=== PATIENT | male | born 1975 | race Caucasian/White ===

== ENCOUNTER 2023-10-22 23:25 | Inpatient (IN) | payer OTHER ==
[~2023-10-22] VITALS: Ht 177.8 cm; Wt 59.8 kg
[~2023-10-22 23:25] MED LIST: PANT-47 PO
[2023-10-23] LABS: BASOPHILS # (AUTO) 0.1 X10'3 (0-0.2); BASOPHILS % (AUTO) 0.4 % (0-1); EOSINOPHILS % (AUTO) 0.1 % (0-6); HEMATOCRIT 38.6 % (42.0-52.0); HEMOGLOBIN 12.7 g/dl (14.0-17.9); LYMPHOCYTES # (AUTO) 0.7 X10'3 (1.1-4.8); LYMPHOCYTES % (AUTO) 5.4 % (21-51); MEAN CORPUSCULAR HEMOGLOBIN 32.6 PG (27.0-31.0); MEAN CORPUSCULAR HGB CONC 32.8 g/dL (33.0-36.5); MEAN CORPUSCULAR VOLUME 99.3 FL (78-98); MEAN PLATELET VOLUME 8.7 FL (7.4-10.4); MONOCYTES # (AUTO) 1.1 X10'3 (0-0.9); MONOCYTES % (AUTO) 9.1 % (2-12); NEUTROPHILS # (AUTO) 10.4 X10'3 (1.8-7.7); PLATELET COUNT 203 X10'3 (140-440); RED BLOOD COUNT 3.89 X10'6 (4.70-6.10); RED CELL DISTRIBUTION WIDTH 12.5 % (11.5-14.5); WHITE BLOOD COUNT 12.2 X10'3 (4.5-11.0)
[2023-10-23] MEDS ORDERED: normal saline 1000ML IV soln IVB ONE (00:05)
[2023-10-23] MEDS ORDERED: ondansetron/PF 4mg/2ml inj IV ONE (00:05)
[2023-10-23 00:27] LABS: ALANINE AMINOTRANSFERASE 26 U/L (12-78); ALBUMIN 4.1 G/DL (3.4-5.0); ALBUMIN/GLOBULIN RATIO 1.4 (1.1-1.5); ALKALINE PHOSPHATASE 100 IU/L (46-116); ANION GAP 27 (8-16); ASPARTATE AMINO TRANSFERASE 25 U/L (10-37); BILIRUBIN,TOTAL 0.9 MG/DL (0.1-1.0); BLOOD UREA NITROGEN 33 MG/DL (7-18); BUN/CREATININE RATIO 17.6 (10.0-20.0); CALCIUM 9.5 MG/DL (8.5-10.1); CHLORIDE 86 MMOL/L (99-107); CREATININE 1.88 MG/DL (0.60-1.10); LIPASE 18 U/L (16-77); POTASSIUM 5.3 MMOL/L (3.5-5.1); SODIUM 124 MMOL/L (135-145); eCRCL 43 ML/MIN; eGFR 39 ML/MIN
[2023-10-23 00:30] LABS: GLUCOSE 674 MG/DL (70-104); TOTAL CARBON DIOXIDE 11.4 MMOL/L (24-32)
--- NOTE | 2023-10-23 00:31 | NUR ---
kemar BUCIO updated on critical lab values, ABG ordered.
[2023-10-23] MEDS ORDERED: insulin regular, human 10 units/0.1 ml syringe IV ONE (00:40)
--- NOTE | 2023-10-23 00:48 | NUR ---
RT at bedside
[2023-10-23 01:01] LABS: ETHANOL < 10 MG/DL (<10)
[2023-10-23 01:05] LABS: BILIRUBIN,URINE NEGATIVE (Neg); CLARITY,URINE CLEAR (Clear); COLOR,URINE STRAW (Yellow); GLUCOSE, URINE >=1000 mg/dl (Neg); LEUKOCYTE ESTERASE ,URINE NEGATIVE (Neg); NITRITES, URINE NEGATIVE (Neg); OCCULT BLOOD,URINE NEGATIVE (Neg); PH,URINE 5.5 (4.8-8.0); PROTEIN,URINE NEGATIVE (Neg); UROBILINOGEN,URINE 0.2 E.U/dL (0.2-1.0)
[2023-10-23 01:09] LABS: UA COLLECTION TYPE CLN CATCH MIDSTREAM
[2023-10-23 01:10] LABS: KETONES,URINE >80 mg/dl (Neg)
[2023-10-23 01:11] LABS: MUCUS STRANDS FEW /LPF (Neg); SQUAMOUS EPITHELIAL CELL,UR NONE SEEN /LPF (FEW)
[2023-10-23 01:12] LABS: BACTERIA,URINE FEW /HPF (Neg); RBC,URINE NONE SEEN /HPF (0-2); WBC,URINE NONE SEEN /HPF (0-4)
[2023-10-23 01:30] LABS: ABG BASE EXCESS -18.8 mmol/L (-2.0-2.0); ABG HCO3 8.4 mmol/L (22.0-26.0); ABG PCO2 (T) 24.5 mmHg (35.0-48.0); ABG PH (T) 7.153 (7.340-7.440); ABG PO2 (T) 66.7 mmHg (75.0-100.0); ALLEN'S TEST Modified; FMetHb 0.4 % (0.0-1.5); FO2Hb 89.6 % (94-97); MODE ROOM AIR; PATIENT TEMPERATURE 36.8; TOTAL HEMOGLOBIN 12.2 G/dl (14.0-17.9)
[2023-10-23] MEDS ORDERED: sodium phosphate inj. 15 MMOL in dextrose 5%-water 250 ML IV PRN (01:35)
[2023-10-23] MEDS ORDERED: Insulin Reg/NS 100units/100mL 100 ML IV SCH (01:35)
[2023-10-23] MEDS ORDERED: potassium Cl 20 mEq SR tablet PO PRN ×2 (01:35)
[2023-10-23] MEDS ORDERED: sodium bicarbonate (8.4%) inj. 100 MEQ in dextrose 5% water 500ml 500 ML IV PRN (01:35)
[2023-10-23] MEDS ORDERED: normal saline 1000ml 1,000 ML IV SCH (01:35)
[2023-10-23] MEDS ORDERED: Neutra Phos packet PO PRN (01:35)
[2023-10-23] MEDS ORDERED: potassium CL 20mEq in D5-1/2NS 1,000 ML IV PRN (01:35)
[2023-10-23] MEDS ORDERED: potassium Cl 40MEQ/1/2NS 520ml 520 ML IV PRN ×2 (01:35)
[2023-10-23] MEDS ORDERED: sodium phosphate inj. 30 MMOL in dextrose 5%-water 250 ML IV PRN (01:35)
[2023-10-23] MEDS ORDERED: sodium bicarbonate (8.4%) inj. 50 MEQ in dextrose 5% water 500ml 250 ML IV PRN (01:35)
[2023-10-23] MEDS: normal saline 1000ml 1,000 ML IV SCH ×6 (01:52→21:35)
[2023-10-23 02:35] LABS: ALBUMIN 3.4 G/DL (3.4-5.0); ANION GAP 23 (8-16); BLOOD UREA NITROGEN 29 MG/DL (7-18); BUN/CREATININE RATIO 17.3 (10.0-20.0); CALCIUM 8.1 MG/DL (8.5-10.1); CHLORIDE 98 MMOL/L (99-107); CREATININE 1.68 MG/DL (0.60-1.10); PHOSPHORUS 3.7 MG/DL (2.3-4.5); POTASSIUM 4.3 MMOL/L (3.5-5.1); SODIUM 132 MMOL/L (135-145); eCRCL 48 ML/MIN; eGFR 44 ML/MIN
[2023-10-23 02:45] LABS: GLUCOSE 442 MG/DL (70-104)
[2023-10-23 02:48] LABS: TOTAL CARBON DIOXIDE 11.2 MMOL/L (24-32)
[2023-10-23] MEDS: insulin Lispro (HumaLOG) vial - multi-dose SQ SCH ×4 (04:32→19:34)
[2023-10-23] MEDS ORDERED: magnesium hydroxide 30ml (MOM) UD suspension PO PRN (04:35)
[2023-10-23] MEDS ORDERED: acetaminophen 325mg tablet PO PRN ×2 (04:35)
[2023-10-23] MEDS ORDERED: ondansetron/PF 4mg/2ml inj IV PRN (04:35)
[2023-10-23] MEDS ORDERED: INSU100V13 (05:11)
[2023-10-23] MEDS ORDERED: BLOO-1948 (05:11)
[2023-10-23 05:39] LABS: BASOPHILS % (AUTO) 0.2 % (0-1); EOSINOPHILS % (AUTO) 0.1 % (0-6); HEMATOCRIT 31.9 % (42.0-52.0); HEMOGLOBIN 10.7 g/dl (14.0-17.9); LYMPHOCYTES % (AUTO) 17.5 % (21-51); MEAN CORPUSCULAR HEMOGLOBIN 32.2 PG (27.0-31.0); MEAN CORPUSCULAR HGB CONC 33.5 g/dL (33.0-36.5); MEAN CORPUSCULAR VOLUME 96.2 FL (78-98); MEAN PLATELET VOLUME 7.6 FL (7.4-10.4); MONOCYTES # (AUTO) 1.1 X10'3 (0-0.9); MONOCYTES % (AUTO) 9.3 % (2-12); NEUTROPHILS # (AUTO) 8.4 X10'3 (1.8-7.7); NEUTROPHILS % (AUTO) 72.9 % (42-75); PLATELET COUNT 164 X10'3 (140-440); RED BLOOD COUNT 3.32 X10'6 (4.70-6.10); RED CELL DISTRIBUTION WIDTH 12.5 % (11.5-14.5); WHITE BLOOD COUNT 11.5 X10'3 (4.5-11.0)
[2023-10-23 05:50] LABS: ALANINE AMINOTRANSFERASE 24 U/L (12-78); ALBUMIN 3.1 G/DL (3.4-5.0); ALBUMIN/GLOBULIN RATIO 1.2 (1.1-1.5); ALKALINE PHOSPHATASE 63 IU/L (46-116); ANION GAP 10 (8-16); ASPARTATE AMINO TRANSFERASE 22 U/L (10-37); BILIRUBIN,TOTAL 0.5 MG/DL (0.1-1.0); BLOOD UREA NITROGEN 24 MG/DL (7-18); BUN/CREATININE RATIO 17.3 (10.0-20.0); CALCIUM 8.3 MG/DL (8.5-10.1); CHLORIDE 103 MMOL/L (99-107); CREATININE 1.39 MG/DL (0.60-1.10); GLUCOSE 266 MG/DL (70-104); PHOSPHORUS 2.2 MG/DL (2.3-4.5); POTASSIUM 4.3 MMOL/L (3.5-5.1); SODIUM 134 MMOL/L (135-145); TOTAL CARBON DIOXIDE 20.8 MMOL/L (24-32); TOTAL PROTEIN 5.7 G/DL (6.4-8.2); eCRCL 58 ML/MIN; eGFR 55 ML/MIN
[2023-10-23] MEDS: Insulin Reg/NS 100units/100mL 100 ML IV SCH (06:00)
--- NOTE | 2023-10-23 06:53 | NUR ---
MD Flanagan paged regarding morning troponin of 450. Awaiting call back. Patient resting quietly in bed. 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 VSS (BPs soft, but consistent throughout night).
[2023-10-23 07:02] LABS: ANION GAP 9 (8-16); BLOOD UREA NITROGEN 21 MG/DL (7-18); BUN/CREATININE RATIO 15.7 (10.0-20.0); CALCIUM 7.9 MG/DL (8.5-10.1); CHLORIDE 103 MMOL/L (99-107); CREATININE 1.34 MG/DL (0.60-1.10); GLUCOSE 238 MG/DL (70-104); POTASSIUM 4.4 MMOL/L (3.5-5.1); SODIUM 133 MMOL/L (135-145); TOTAL CARBON DIOXIDE 21.2 MMOL/L (24-32); eCRCL 60 ML/MIN; eGFR 57 ML/MIN
[2023-10-23 07:16] LABS: BASOPHILS % (AUTO) 0.4 % (0-1); EOSINOPHILS % (AUTO) 0.2 % (0-6); HEMATOCRIT 31.4 % (42.0-52.0); HEMOGLOBIN 10.8 g/dl (14.0-17.9); LYMPHOCYTES # (AUTO) 2.2 X10'3 (1.1-4.8); LYMPHOCYTES % (AUTO) 20.9 % (21-51); MEAN CORPUSCULAR HGB CONC 34.3 g/dL (33.0-36.5); MEAN CORPUSCULAR VOLUME 96.3 FL (78-98); MEAN PLATELET VOLUME 7.5 FL (7.4-10.4); MONOCYTES # (AUTO) 0.8 X10'3 (0-0.9); MONOCYTES % (AUTO) 8.2 % (2-12); NEUTROPHILS # (AUTO) 7.3 X10'3 (1.8-7.7); NEUTROPHILS % (AUTO) 70.3 % (42-75); PLATELET COUNT 165 X10'3 (140-440); RED BLOOD COUNT 3.27 X10'6 (4.70-6.10); RED CELL DISTRIBUTION WIDTH 11.9 % (11.5-14.5); WHITE BLOOD COUNT 10.3 X10'3 (4.5-11.0)
--- NOTE | 2023-10-23 07:27 | NUR ---
MD Flanagan called back and was notified of 450 Trop as well as new trop of 628 from 0725. Md requested most recent EKG (from the last hour) and stated new order for ASA and possible cards consult will be placed. Md Torres to take over for day shift. Will continue to monitor patient.
[2023-10-23] MEDS: K and/or MAG REPLACEMENT MC SCH ×2 (08:00→20:00)
[2023-10-23] MEDS: nicotine 14mg patch - 24hr TD SCH (08:18)
[2023-10-23] MEDS: famotidine 20mg tablet PO SCH ×2 (08:18→20:38)
[2023-10-23] MEDS: heparin, porcine 5000 units/ml vial SQ SCH ×2 (08:20→20:00)
--- NOTE | 2023-10-23 08:27 | NUR ---
Md Torres stating enteric coated asa is appropriate at this time - to be given with 0800 meds.
[2023-10-23] MEDS: aspirin 325mg tablet, delayed-release (Ecotrin) PO SCH (08:28)
[2023-10-23] MEDS ORDERED: heparin 25,000 UNIT/250ml bag 250 ML IV PRN (08:55)
[2023-10-23] MEDS ORDERED: normal saline 1000ml 1,000 ML IV ONE ×2 (08:55)
[2023-10-23] MEDS ORDERED: heparin 10,000 units/1 ML INJ IV ONE (08:55)
[2023-10-23] MEDS ORDERED: PERFLUTREN PROTEIN-A MICROSPHR (Optison) 0.22 MG/ML 3ML VIAL IV ONE (08:55)
[2023-10-23 09:33] LABS: APTT 27 SECONDS (22-32)
[2023-10-23 09:36] LABS: BASOPHILS % (AUTO) 0.4 % (0-1); EOSINOPHILS % (AUTO) 0.4 % (0-6); HEMOGLOBIN 10.6 g/dl (14.0-17.9); LYMPHOCYTES # (AUTO) 2.2 X10'3 (1.1-4.8); MEAN CORPUSCULAR HEMOGLOBIN 32.7 PG (27.0-31.0); MEAN CORPUSCULAR HGB CONC 34.1 g/dL (33.0-36.5); MEAN PLATELET VOLUME 8.1 FL (7.4-10.4); MONOCYTES # (AUTO) 0.9 X10'3 (0-0.9); MONOCYTES % (AUTO) 9.2 % (2-12); NEUTROPHILS # (AUTO) 6.4 X10'3 (1.8-7.7); PLATELET COUNT 170 X10'3 (140-440); RED BLOOD COUNT 3.23 X10'6 (4.70-6.10); RED CELL DISTRIBUTION WIDTH 12.3 % (11.5-14.5); WHITE BLOOD COUNT 9.5 X10'3 (4.5-11.0)
--- NOTE | 2023-10-23 09:44 | NUR ---
Contacted dr melgar to see if he wanted the Heparin bolus given d/t SQ dose being given, he said to proceed and give the 4,000 bolus and start the drip as per protocol.
[2023-10-23 09:51] LABS: PROTHROMBIN TIME 11.2 SECONDS (9.0-12.0)
--- NOTE | 2023-10-23 13:53 | NUR ---
attempted to call report on patient, nurse on break.
--- NOTE | 2023-10-23 14:45 | NUR ---
Patient in room ED 7. I have received report from Jessie RN and had the opportunity to ask questions and assume patient care.
--- NOTE | 2023-10-23 14:50 | NUR ---
Pt arrived on the unit from ER. Pt ambulated to bathroom. Pt in NAD. Pt settled into room.
[2023-10-23 15:00] VITALS: BP 127/72; PULSE 93; RESP 16; TEMP 98.3; O2SAT 99
[2023-10-23 16:00] VITALS: RESP 14; O2SAT 99
--- NOTE | 2023-10-23 16:17 | NUR ---
PAGER ID: [phone] MESSAGE: Pt Gordon in 1773B is on PCU and is asking if we are doing a stress test? He was told he could not have caffeine in the ER and is asking for some coffee now. Please advise. IVONNE Van [id number]
[2023-10-23 17:28] LABS: BASOPHILS % (AUTO) 0.4 % (0-1); EOSINOPHILS # (AUTO) 0.1 X10'3 (0-0.9); EOSINOPHILS % (AUTO) 1.4 % (0-6); HEMATOCRIT 32.7 % (42.0-52.0); HEMOGLOBIN 10.9 g/dl (14.0-17.9); LYMPHOCYTES # (AUTO) 2.9 X10'3 (1.1-4.8); LYMPHOCYTES % (AUTO) 28.4 % (21-51); MEAN CORPUSCULAR HEMOGLOBIN 32.6 PG (27.0-31.0); MEAN CORPUSCULAR HGB CONC 33.4 g/dL (33.0-36.5); MEAN CORPUSCULAR VOLUME 97.6 FL (78-98); MEAN PLATELET VOLUME 8.4 FL (7.4-10.4); MONOCYTES % (AUTO) 9.9 % (2-12); NEUTROPHILS # (AUTO) 6.2 X10'3 (1.8-7.7); NEUTROPHILS % (AUTO) 59.9 % (42-75); PLATELET COUNT 160 X10'3 (140-440); RED BLOOD COUNT 3.35 X10'6 (4.70-6.10); RED CELL DISTRIBUTION WIDTH 12.3 % (11.5-14.5); WHITE BLOOD COUNT 10.4 X10'3 (4.5-11.0)
[2023-10-23 17:31] LABS: ALBUMIN 2.8 G/DL (3.4-5.0); ANION GAP 7 (8-16); BLOOD UREA NITROGEN 15 MG/DL (7-18); BUN/CREATININE RATIO 15.3 (10.0-20.0); CALCIUM 7.8 MG/DL (8.5-10.1); CHLORIDE 103 MMOL/L (99-107); CREATININE 0.98 MG/DL (0.60-1.10); GLUCOSE 217 MG/DL (70-104); PHOSPHORUS 2.9 MG/DL (2.3-4.5); POTASSIUM 4.1 MMOL/L (3.5-5.1); SODIUM 131 MMOL/L (135-145); TOTAL CARBON DIOXIDE 20.8 MMOL/L (24-32); eCRCL 82 ML/MIN; eGFR 82 ML/MIN
[2023-10-23 18:00] VITALS: BP 128/74; PULSE 95; RESP 13; TEMP 97.8; O2SAT 97
--- NOTE | 2023-10-23 18:00 | NUR ---
Patient in room PCU 3013. I have received report from Carlota CORONADO and had the opportunity to ask questions and assume patient care.
--- NOTE | 2023-10-23 18:01 | NUR ---
PAGER ID: [phone] MESSAGE: Pt Bullis in 3013B aPTT is greater than 139. I'm holding the heparin infusion for 120 minutes per protocol. Pt educated to not get out of bed at this time. Pt in MYLA. IVONNE Van [id number]
--- NOTE | 2023-10-23 18:20 | NUR ---
Problems reprioritized. Patient report given, questions answered & plan of care reviewed with IVONNE Skelton.
[2023-10-23 19:48] LABS: BASOPHILS # (AUTO) 0.1 X10'3 (0-0.2); BASOPHILS % (AUTO) 0.7 % (0-1); EOSINOPHILS # (AUTO) 0.2 X10'3 (0-0.9); EOSINOPHILS % (AUTO) 2.1 % (0-6); HEMATOCRIT 33.6 % (42.0-52.0); HEMOGLOBIN 11.3 g/dl (14.0-17.9); LYMPHOCYTES # (AUTO) 2.6 X10'3 (1.1-4.8); LYMPHOCYTES % (AUTO) 29.3 % (21-51); MEAN CORPUSCULAR HEMOGLOBIN 32.6 PG (27.0-31.0); MEAN CORPUSCULAR HGB CONC 33.5 g/dL (33.0-36.5); MEAN CORPUSCULAR VOLUME 97.2 FL (78-98); MEAN PLATELET VOLUME 8.3 FL (7.4-10.4); MONOCYTES # (AUTO) 0.6 X10'3 (0-0.9); NEUTROPHILS # (AUTO) 5.4 X10'3 (1.8-7.7); NEUTROPHILS % (AUTO) 60.9 % (42-75); PLATELET COUNT 160 X10'3 (140-440); RED BLOOD COUNT 3.46 X10'6 (4.70-6.10); RED CELL DISTRIBUTION WIDTH 12.6 % (11.5-14.5); WHITE BLOOD COUNT 8.9 X10'3 (4.5-11.0)
[2023-10-23 20:00] VITALS: RESP 14; O2SAT 99
[2023-10-23 20:00] LABS: ALBUMIN 2.7 G/DL (3.4-5.0); ANION GAP 10 (8-16); BLOOD UREA NITROGEN 14 MG/DL (7-18); BUN/CREATININE RATIO 13.1 (10.0-20.0); CALCIUM 7.9 MG/DL (8.5-10.1); CHLORIDE 101 MMOL/L (99-107); CREATININE 1.07 MG/DL (0.60-1.10); GLUCOSE 290 MG/DL (70-104); PHOSPHORUS 2.6 MG/DL (2.3-4.5); POTASSIUM 4.3 MMOL/L (3.5-5.1); SODIUM 131 MMOL/L (135-145); TOTAL CARBON DIOXIDE 20.1 MMOL/L (24-32); eCRCL 75 ML/MIN; eGFR 74 ML/MIN
[2023-10-23] MEDS ORDERED: dextrose 50%-water 50ml dispensing syringe IV PRN ×2 (21:40)
[2023-10-23] MEDS ORDERED: MESSAGE TO PHARMACY PO ONE (21:40)
[2023-10-23] MEDS ORDERED: glucagon, human recombinant 1mg kit SUBCUT PRN (21:40)
[2023-10-23] MEDS ORDERED: DEXTROSE 15 GM of carb/4 tabs (each vial/BOTTLE has 4 tablets) PO PRN ×2 (21:40)
[2023-10-23 22:00] VITALS: BP 116/71; PULSE 94; RESP 14; TEMP 98.5; O2SAT 98
[2023-10-23] MEDS: insulin glargine (Lantus) pen - multi-dose SQ SCH (22:30)
[2023-10-23] MEDS: heparin 10,000 units/1 ML INJ IV PRN (22:52)
[2023-10-24] VITALS (8 sets, daily range): BP systolic 135–159; BP diastolic 84–93; PULSE 80–95; RESP 12–18; TEMP 97.3–98.7; O2SAT 95–99
[2023-10-24] MEDS: normal saline 1000ml 1,000 ML IV SCH ×4 (01:35→13:35)
[2023-10-24 05:44] LABS: BASOPHILS % (AUTO) 0.5 % (0-1); EOSINOPHILS # (AUTO) 0.2 X10'3 (0-0.9); HEMATOCRIT 34.1 % (42.0-52.0); HEMOGLOBIN 11.5 g/dl (14.0-17.9); LYMPHOCYTES % (AUTO) 31.8 % (21-51); MEAN CORPUSCULAR HEMOGLOBIN 32.6 PG (27.0-31.0); MEAN CORPUSCULAR HGB CONC 33.7 g/dL (33.0-36.5); MEAN CORPUSCULAR VOLUME 96.8 FL (78-98); MEAN PLATELET VOLUME 7.9 FL (7.4-10.4); MONOCYTES # (AUTO) 0.4 X10'3 (0-0.9); MONOCYTES % (AUTO) 6.5 % (2-12); NEUTROPHILS # (AUTO) 3.6 X10'3 (1.8-7.7); NEUTROPHILS % (AUTO) 58.2 % (42-75); PLATELET COUNT 158 X10'3 (140-440); RED BLOOD COUNT 3.53 X10'6 (4.70-6.10); RED CELL DISTRIBUTION WIDTH 12.5 % (11.5-14.5); WHITE BLOOD COUNT 6.2 X10'3 (4.5-11.0)
[2023-10-24 06:01] LABS: ALBUMIN 2.8 G/DL (3.4-5.0); ANION GAP 10 (8-16); BLOOD UREA NITROGEN 10 MG/DL (7-18); BUN/CREATININE RATIO 11.4 (10.0-20.0); CALCIUM 8.2 MG/DL (8.5-10.1); CHLORIDE 102 MMOL/L (99-107); CREATININE 0.88 MG/DL (0.60-1.10); GLUCOSE 246 MG/DL (70-104); PHOSPHORUS 2.4 MG/DL (2.3-4.5); SODIUM 134 MMOL/L (135-145); TOTAL CARBON DIOXIDE 21.9 MMOL/L (24-32); eCRCL 91 ML/MIN; eGFR > 90 ML/MIN
--- NOTE | 2023-10-24 06:40 | NUR ---
Problems reprioritized. Patient report given, questions answered & plan of care reviewed with Carlota CORONADO.
[2023-10-24] MEDS: K and/or MAG REPLACEMENT MC SCH (08:04)
[2023-10-24] MEDS: famotidine 20mg tablet PO SCH ×2 (08:50→19:20)
[2023-10-24] MEDS: aspirin 325mg tablet, delayed-release (Ecotrin) PO SCH (08:50)
[2023-10-24] MEDS: nicotine 14mg patch - 24hr TD SCH (08:51)
[2023-10-24] MEDS: insulin Lispro (HumaLOG) vial - multi-dose SQ SCH ×3 (09:37→19:35)
[2023-10-24] MEDS ORDERED: regadenoson 0.4mg/5ml syringe IV PRN (11:05)
[2023-10-24] MEDS ORDERED: nitroGLYCERIN 0.4mg SUBLingual tab SL PRN (11:05)
[2023-10-24] MEDS ORDERED: metoprolol tartrate 1mg/ml inj IV PRN (11:05)
[2023-10-24] MEDS ORDERED: aminophylline 250mg/10ml inj. IV PRN (11:05)
--- NOTE | 2023-10-24 13:04 | NUR ---
CRITICAL LAB VALUE TAKEN FROM LAB, REPORTED TO PRIMARY RN.
--- NOTE | 2023-10-24 14:55 | NUR ---
Initial: Pt admit for DKA. Current A1c 8.3% with BG 647 mg/dL on admit. Pt seen at bedside with SO present. 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 Pt states he has a Dexcom and a closed loop insulin pump so insulin is automatically administered. Pt reports current A1c is pretty consistent with normal A1c after getting the Dexcom and closed loop pump around 2-3 years ago, prior A1c was around 13%. Pt states current DKA is r/t overcorrecting a low blood sugar. RD discussed the rule of 15s for hypoglycemia management which pt states was new information to him. All questions were answered at this time. Pt endorses a good appetite which is evident with 75-100% PO intake on CHO controlled diet. Pt states he isn't getting completely full from meals though denies additional food at this time. Pt reports food allergy to raspberries and blackberries, d/w dietary and updated EMR. Pt reports difficulty chewing d/t new ill fitting dentures. Pt requests soft to chew foods, d/w dietary. LBM 10/22 per EMR. Pt provided with RD contact information and encouraged to reach out if needed. Will continue to follow. Recommendations: 1) Continue CHO controlled diet 2) Soft to chew food per pt request d/t difficulty chewing 3) Routine bowel care 4) Weekly scaled weights Addendum: 10/24/23 at [address] Amended: Links added.
[2023-10-24] MEDS: Insulin Reg/NS 100units/100mL 100 ML IV SCH (15:20)
[2023-10-24] MEDS ORDERED: heparin 25,000 UNIT/250ml bag 250 ML IV PRN (17:00)
--- NOTE | 2023-10-24 18:26 | NUR ---
Problems reprioritized. Patient report given, questions answered & plan of care reviewed with IVONNE Gregorio.
[2023-10-24] MEDS: insulin glargine (Lantus) pen - multi-dose SQ SCH (22:05)
--- NOTE | 2023-10-24 22:11 | NUR ---
MD Garcia notified by telephone that patient wanted 8 units of lantus instead of the dose called for by the protocol. stated that was fine to administer 8 units of lantus.
[2023-10-25] VITALS (19 sets, daily range): BP systolic 82–152; BP diastolic 58–96; PULSE 82–113; RESP 14–20; TEMP 97.5–100.4; O2SAT 94–100
[2023-10-25 03:25] LABS: BASOPHILS % (AUTO) 0.9 % (0-1); EOSINOPHILS # (AUTO) 0.2 X10'3 (0-0.9); EOSINOPHILS % (AUTO) 4.5 % (0-6); HEMATOCRIT 37.3 % (42.0-52.0); HEMOGLOBIN 12.7 g/dl (14.0-17.9); LYMPHOCYTES # (AUTO) 2.2 X10'3 (1.1-4.8); LYMPHOCYTES % (AUTO) 44.6 % (21-51); MEAN CORPUSCULAR HEMOGLOBIN 32.4 PG (27.0-31.0); MEAN CORPUSCULAR VOLUME 95.5 FL (78-98); MEAN PLATELET VOLUME 7.8 FL (7.4-10.4); MONOCYTES # (AUTO) 0.3 X10'3 (0-0.9); MONOCYTES % (AUTO) 6.2 % (2-12); NEUTROPHILS # (AUTO) 2.1 X10'3 (1.8-7.7); NEUTROPHILS % (AUTO) 43.8 % (42-75); PLATELET COUNT 140 X10'3 (140-440); RED CELL DISTRIBUTION WIDTH 12.3 % (11.5-14.5); WHITE BLOOD COUNT 4.8 X10'3 (4.5-11.0)
--- NOTE | 2023-10-25 07:07 | NUR ---
Covid and flu lab sent to lab via student
[2023-10-25] MEDS: famotidine 20mg tablet PO SCH ×2 (07:55→20:07)
[2023-10-25] MEDS: aspirin 325mg tablet, delayed-release (Ecotrin) PO SCH (07:55)
[2023-10-25] MEDS: nicotine 14mg patch - 24hr TD SCH (07:56)
[2023-10-25] MEDS: insulin Lispro (HumaLOG) vial - multi-dose SQ SCH (08:08)
[2023-10-25] MEDS: normal saline 1000ml 1,000 ML IV SCH ×2 (11:25→20:07)
[2023-10-25] MEDS ORDERED: fentaNYL/PF 50MCG/1 ML 2ML syringe ONE ×2 (11:46→13:20)
[2023-10-25] MEDS ORDERED: LIDOcaine 1% (10mg/ml)w/preservative inj. 20ml MDV ONE (11:46)
[2023-10-25] MEDS ORDERED: iohexol 350MG/ML 100ml bottle IV ONE (11:46)
[2023-10-25] MEDS ORDERED: midazolam 1 mg/ML 2ml injection ONE ×2 (11:46→12:59)
[2023-10-25 11:56] LABS: ALANINE AMINOTRANSFERASE 25 U/L (12-78); ALKALINE PHOSPHATASE 65 IU/L (46-116); ANION GAP 4 (8-16); ASPARTATE AMINO TRANSFERASE 20 U/L (10-37); BILIRUBIN,TOTAL 0.5 MG/DL (0.1-1.0); BLOOD UREA NITROGEN 8 MG/DL (7-18); BUN/CREATININE RATIO 10.5 (10.0-20.0); CALCIUM 8.9 MG/DL (8.5-10.1); CHLORIDE 101 MMOL/L (99-107); CREATININE 0.76 MG/DL (0.60-1.10); GLUCOSE 205 MG/DL (70-104); POTASSIUM 3.7 MMOL/L (3.5-5.1); SODIUM 135 MMOL/L (135-145); TOTAL CARBON DIOXIDE 29.6 MMOL/L (24-32); TOTAL PROTEIN 5.9 G/DL (6.4-8.2); eCRCL 105 ML/MIN; eGFR > 90 ML/MIN
[2023-10-25] MEDS ORDERED: iohexol 350 MG/ML 50ML vial IV ONE (12:10)
[2023-10-25] MEDS: heparin 10,000 units/1 ML INJ IV PRN (12:28)
--- NOTE | 2023-10-25 12:41 | NUR ---
Pt. to go to d Addendum: 10/25/23 at 1242 by Addis Rhodes RN nico chamorro for nowJovanna torres
--- NOTE | 2023-10-25 12:42 | NUR ---
Pt. states told him to reconnect his insulin pump. Clarified with hospitalist. would like accuchecks and hospital protocol DC'd for this pt.
[2023-10-25] MEDS ORDERED: metoprolol tartrate 1mg/ml inj IV ONE (13:04)
--- NOTE | 2023-10-25 14:07 | NUR ---
DISCHARGE NOTE: Reviewed discharge paperwork and medications with pt. He is aware not to drive on Ativan or under the influence of alcohol. Aware of possible ASE of new medications. PIV DC'd, cannula intact, no complications. Tele removed and returned. Pt. escorted downstairs in a w/c to discharge home with his "Aunt". Addendum: 10/25/23 at 1416 by Addis Rhodes RN Disregard note: careprovider mistake
--- NOTE | 2023-10-25 16:41 | NUR ---
Pt. to remain supine position until 1830
--- NOTE | 2023-10-25 18:35 | NUR ---
Patient in room PCU 3013. I have received report from LORENA CORONADO and had the opportunity to ask questions and assume patient care. Addendum: 10/25/23 at 1839 by Brianne Sheest RN WRONG PATIENT
[2023-10-26] VITALS: BP 135/78; PULSE 86; RESP 16; O2SAT 95
[2023-10-26] MEDS ORDERED: insulin Lispro (HumaLOG) vial - multi-dose SQ ONE (01:00)
[2023-10-26 02:00] VITALS: BP 123/75; PULSE 92; RESP 14; TEMP 98.3; O2SAT 97
[2023-10-26] MEDS: normal saline 1000ml 1,000 ML IV SCH (05:08)
[2023-10-26 06:00] VITALS: BP 100/73; PULSE 69; RESP 14; TEMP 97.3; O2SAT 99
[2023-10-26 08:00] VITALS: RESP 16; O2SAT 99
[2023-10-26 08:46] LABS: BASOPHILS % (AUTO) 0.9 % (0-1); EOSINOPHILS # (AUTO) 0.2 X10'3 (0-0.9); EOSINOPHILS % (AUTO) 3.7 % (0-6); HEMATOCRIT 33.1 % (42.0-52.0); HEMOGLOBIN 11.3 g/dl (14.0-17.9); LYMPHOCYTES # (AUTO) 1.1 X10'3 (1.1-4.8); LYMPHOCYTES % (AUTO) 20.6 % (21-51); MEAN CORPUSCULAR HEMOGLOBIN 32.6 PG (27.0-31.0); MEAN CORPUSCULAR VOLUME 95.7 FL (78-98); MEAN PLATELET VOLUME 8.1 FL (7.4-10.4); MONOCYTES # (AUTO) 0.5 X10'3 (0-0.9); MONOCYTES % (AUTO) 8.4 % (2-12); NEUTROPHILS # (AUTO) 3.6 X10'3 (1.8-7.7); NEUTROPHILS % (AUTO) 66.4 % (42-75); PLATELET COUNT 142 X10'3 (140-440); RED BLOOD COUNT 3.46 X10'6 (4.70-6.10); RED CELL DISTRIBUTION WIDTH 12.1 % (11.5-14.5); WHITE BLOOD COUNT 5.4 X10'3 (4.5-11.0)
[2023-10-26 09:18] LABS: ALANINE AMINOTRANSFERASE 18 U/L (12-78); ALBUMIN 2.8 G/DL (3.4-5.0); ALKALINE PHOSPHATASE 58 IU/L (46-116); ANION GAP 6 (8-16); ASPARTATE AMINO TRANSFERASE 15 U/L (10-37); BILIRUBIN,TOTAL 0.7 MG/DL (0.1-1.0); BLOOD UREA NITROGEN 11 MG/DL (7-18); BUN/CREATININE RATIO 15.9 (10.0-20.0); CALCIUM 8.1 MG/DL (8.5-10.1); CHLORIDE 101 MMOL/L (99-107); CREATININE 0.69 MG/DL (0.60-1.10); GLUCOSE 271 MG/DL (70-104); POTASSIUM 4.2 MMOL/L (3.5-5.1); SODIUM 135 MMOL/L (135-145); TOTAL CARBON DIOXIDE 27.9 MMOL/L (24-32); TOTAL PROTEIN 5.6 G/DL (6.4-8.2); eCRCL 112 ML/MIN; eGFR > 90 ML/MIN
[2023-10-26] MEDS: famotidine 20mg tablet PO SCH (09:34)
[2023-10-26] MEDS: aspirin 325mg tablet, delayed-release (Ecotrin) PO SCH (09:34)
[2023-10-26] MEDS: nicotine 14mg patch - 24hr TD SCH (09:34)
[2023-10-26] MEDS ORDERED: MESSAGE TO PHARMACY PO ONE (09:55)
[2023-10-26] MEDS ORDERED: glucagon, human recombinant 1mg kit SUBCUT PRN (09:55)
[2023-10-26] MEDS ORDERED: DEXTROSE 15 GM of carb/4 tabs (each vial/BOTTLE has 4 tablets) PO PRN ×2 (09:55)
[2023-10-26] MEDS ORDERED: insulin Lispro (HumaLOG) vial - multi-dose SQ SCH (09:55)
[2023-10-26] MEDS ORDERED: dextrose 50%-water 50ml dispensing syringe IV PRN ×2 (09:55)
[2023-10-26 10:03] LABS: CHOL/HDL RATIO 3.8 (0.00-4.99); CHOLESTEROL 152 MG/DL (0-200); HDL CHOLESTEROL 40 MG/DL (35-60); LDL CHOLESTEROL 87 MG/DL (50-100); TRIGLYCERIDES 180 MG/DL (20-135)
[2023-10-26] MEDS ORDERED: METO-395 PO (10:10)
[2023-10-26] MEDS ORDERED: ASPI-1071 PO (10:10)
[2023-10-26] MEDS ORDERED: INSU100V9 SQ (10:10)
[2023-10-26] MEDS ORDERED: INSU500I SQ (10:10)
[2023-10-26 11:00] VITALS: BP 126/79; PULSE 81; RESP 12; TEMP 98; O2SAT 99
--- NOTE | 2023-10-26 12:23 | NUR ---
Discharged to the main lobby and Pt. will drive self home 1 block. Instructions for aftercare, Groin site care, and insulin orders are well understood. Pt. 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 He has all of the tool necessary to manage his diabetes without the pump if needed. Stable for discharge.
[2023-10-26] MEDS ORDERED: insulin glargine (Lantus) pen - multi-dose SQ SCH (21:00)
== END 2023-10-26 12:16 | disposition home or self-care (01) | DRG 637 ==
LOC: ER 23:26 → UNDOADMIN 10-23 04:40 → ED HOLD 10-23 04:40 → EDBEDREQ 10-23 12:52 → EDBEDREQSVC 10-23 12:52 → PCU 3S 10-23 15:11
PROVIDERS: ADMIT Internal Medicine Pulmonary Disease; ATTEND Internal Medicine
PROC: 4A023N7 Measurement of Cardiac Sampling and Pressure, Left Heart, Percutaneous Approach (ICD-10-PCS; principal; 2023-10-25)
PROC: B2111ZZ Fluoroscopy of Multiple Coronary Arteries using Low Osmolar Contrast (ICD-10-PCS; 2023-10-25)
PROC: B2151ZZ Fluoroscopy of Left Heart using Low Osmolar Contrast (ICD-10-PCS; 2023-10-25)
PROC: B41F1ZZ Fluoroscopy of Right Lower Extremity Arteries using Low Osmolar Contrast (ICD-10-PCS; 2023-10-25)
PROC: B41C1ZZ Fluoroscopy of Pelvic Arteries using Low Osmolar Contrast (ICD-10-PCS; 2023-10-25)
PROC: 4A02XM4 Measurement of Cardiac Total Activity, External Approach (ICD-10-PCS; 2023-10-25)
PROC: 3E033HZ Introduction of Radioactive Substance into Peripheral Vein, Percutaneous Approach (ICD-10-PCS; 2023-10-25)
DX: E10.10 Type 1 diabetes mellitus with ketoacidosis without coma (principal); I21.4 Non-ST elevation (NSTEMI) myocardial infarction; N17.0 Acute kidney failure with tubular necrosis; E87.1 Hypo-osmolality and hyponatremia; E87.20 Acidosis, unspecified; F17.290 Nicotine dependence, other tobacco product, uncomplicated; K21.9 Gastro-esophageal reflux disease without esophagitis; K40.90 Unilateral inguinal hernia, without obstruction or gangrene, not specified as recurrent; Z96.41 Presence of insulin pump (external) (internal); D64.9 Anemia, unspecified; F17.210 Nicotine dependence, cigarettes, uncomplicated; E87.5 Hyperkalemia; R07.89 Other chest pain; Z79.4 Long term (current) use of insulin; Z82.49 Family history of ischemic heart disease and other diseases of the circulatory system; Z79.899 Other long term (current) drug therapy; Z71.6 Tobacco abuse counseling
CPT/HCPCS: 36415; 36600; 71045; 78452; 80048; 80053; 80061; 80320; 81001; 82800; 82803; 82948; 83036; 83690; 84100; 84145; 84484; 85018; 85025; 85610; 85730; 87081; 87502; 87503; 87811; 93005; 93017; 93306; 93458; 96365; 96375; 99152; 99153; 99291; A4615; A6258; A9500; C1760; J1644; J1815; J2250; J2405; J2785; J3010; J3480; J3490; J7030; Q9967